=== PATIENT | female | born 1955 | race Caucasian/White ===

== ENCOUNTER → 2017-08-08 | Outpatient (CLI) | payer OTHER ==
[~2017-08-08] MED LIST: Benicar40 MG; Celexa40 MG; DOXY100; METF850; RANI150EL
== END | disposition home or self-care (01) ==
LOC: LAB SHORT 11:23 → PLD 11:23
DX: D31.61 Benign neoplasm of unspecified site of right orbit (principal); L57.0 Actinic keratosis
CPT/HCPCS: 88305

== ENCOUNTER 2018-01-31 06:48 | Day surgery (SDC) | payer OTHER ==
[~2018-01-31] VITALS: Ht 165.1 cm; Wt 76.8 kg
[~2018-01-31 06:48] MED LIST changes: -RANI150EL
[2018-01-31] MEDS ORDERED: RANI150EL (07:23)
== END 2018-01-31 09:03 | disposition home or self-care (01) ==
LOC: ORSCSDS 06:48
PROVIDERS: Internal Medicine Gastroenterology
PROC: 0DBL8ZX Excision of Transverse Colon, Via Natural or Artificial Opening Endoscopic, Diagnostic (ICD-10-PCS; principal; 2018-01-31 08:00)
PROC: 0DBP8ZX Excision of Rectum, Via Natural or Artificial Opening Endoscopic, Diagnostic (ICD-10-PCS; principal; 2018-01-31 08:00)
PROC: 0D5K8ZZ Destruction of Ascending Colon, Via Natural or Artificial Opening Endoscopic (ICD-10-PCS; principal; 2018-01-31 08:00)
PROC: 0DBK8ZX Excision of Ascending Colon, Via Natural or Artificial Opening Endoscopic, Diagnostic (ICD-10-PCS; principal; 2018-01-31 08:00)
DX: Z12.11 Encounter for screening for malignant neoplasm of colon (principal); D12.2 Benign neoplasm of ascending colon; D12.3 Benign neoplasm of transverse colon; D12.5 Benign neoplasm of sigmoid colon; K55.20 Angiodysplasia of colon without hemorrhage; K62.1 Rectal polyp; K64.8 Other hemorrhoids; E11.9 Type 2 diabetes mellitus without complications; I10 Essential (primary) hypertension; E78.5 Hyperlipidemia, unspecified; F32.9 Major depressive disorder, single episode, unspecified; Z79.84 Long term (current) use of oral hypoglycemic drugs; Z79.899 Other long term (current) drug therapy
CPT/HCPCS: 82947; 88305; J0330; J1980; J2405

== ENCOUNTER → 2019-02-21 | Outpatient (CLI) | payer OTHER ==
[~2019-02-21] MED LIST changes: +RANI150EL
== END | disposition home or self-care (01) ==
LOC: LAB SHORT 19:23 → LAB EV 19:23
DX: N39.0 Urinary tract infection, site not specified (principal)
CPT/HCPCS: 87077; 87086; 87186

== ENCOUNTER → 2021-12-29 | Outpatient (CLI) | payer MEDICARE, OTHER | END | disposition home or self-care (01) | LOC: LAB 12:10 → LAB SHORT 12:10 | DX: N39.0 Urinary tract infection, site not specified (principal) | CPT/HCPCS: 87077; 87086; 87186 ==

== ENCOUNTER 2022-08-23 12:16 | Day surgery (SDC) | payer MEDICARE, OTHER ==
[~2022-08-23] VITALS: Ht 162.6 cm; Wt 71.8 kg
[2022-08-23] MEDS ORDERED: GLIP10 (13:11)
[2022-08-23] MEDS ORDERED: LOSA25 (13:11)
[2022-08-23] MEDS ORDERED: CALCIUM 1,0001 EAC1 (13:11)
[2022-08-23] MEDS ORDERED: SERT100 (13:12)
== END 2022-08-23 15:20 | disposition home or self-care (01) ==
LOC: ORSCSDS 12:16
PROVIDERS: Internal Medicine Gastroenterology
PROC: 0DJD8ZZ Inspection of Lower Intestinal Tract, Via Natural or Artificial Opening Endoscopic (ICD-10-PCS; principal; 2022-08-23 13:45)
PROC: 0DJ08ZZ Inspection of Upper Intestinal Tract, Via Natural or Artificial Opening Endoscopic (ICD-10-PCS; principal; 2022-08-23 13:45)
DX: Z12.11 Encounter for screening for malignant neoplasm of colon (principal); Z86.010 Personal history of colon polyps; K64.8 Other hemorrhoids; K21.9 Gastro-esophageal reflux disease without esophagitis; E78.5 Hyperlipidemia, unspecified; E11.9 Type 2 diabetes mellitus without complications; Z79.82 Long term (current) use of aspirin; Z79.84 Long term (current) use of oral hypoglycemic drugs; Z79.899 Other long term (current) drug therapy
CPT/HCPCS: 43235; G0105; 82947; J2704; J7120

== ENCOUNTER → 2023-08-22 | Outpatient (CLI) | payer MEDICARE, OTHER ==
[~2023-08-22] MED LIST changes: +CALCIUM 1,0001 EAC1; +GLIP10; +LOSA25; +SERT100
[2023-08-22 12:05] LABS: Source, Urine Clean Catch
[2023-08-22 13:42] LABS: Appearance, Urine Hazy (Clear); Bilirubin, Urine Neg (Neg); Blood, Urine Neg (Neg); Glucose Qualitative, Urine Neg (Neg); Ketones, Urine Neg (Neg); Leukocyte Esterase, Urine 3+ (Neg); Nitrite, Urine Neg (Neg); Protein, Urine Neg (Neg); Specific Gravity, Urine 1.005 (1.003-1.022); Urobilinogen, Urine NORM (Normal)
[2023-08-22 13:50] LABS: Color, Urine Pale Yellow (P-Yellow)
[2023-08-22 13:51] LABS: Amorphous Light (0-Heavy); Bacteria Few /hpf; Red Blood Cells, Urine 0-2 /hpf (0-2); Squamous Epithelial Cells Few /hpf (Few); Transitional Epithelial Cells Rare /hpf (0-Rare)
== END | disposition home or self-care (01) ==
LOC: LAB 12:04 → LAB SHORT 12:04
PROVIDERS: Obstetrics & Gynecology
DX: N39.0 Urinary tract infection, site not specified (principal)
CPT/HCPCS: 81001; 87077; 87086; 87186

== ENCOUNTER 2024-04-03 12:54 | Inpatient (IN) | payer OTHER ==
[~2024-04-03] VITALS: Ht 162.6 cm; Wt 68.1 kg
[2024-04-03] VITALS (14 sets, daily range): BP systolic 118–178; BP diastolic 65–115
[~2024-04-03 12:54] MED LIST changes: -GLIP10; +GLIP10 PO
[2024-04-03] MEDS ORDERED: Ondansetron 4 MG SoluTab SL ONE (13:15)
[2024-04-03] MEDS ORDERED: Nitroglycerin 0.4 MG SUBL SL PRN (13:20)
[2024-04-03] MEDS ORDERED: Ondansetron HCl 2 MG / ML 2ML Vial IV ONE (13:30)
[2024-04-03] MEDS ORDERED: FentaNYL Citrate 50 MCG/ML 2 ML Injection IV ONE (13:30)
[2024-04-03] MEDS ORDERED: NS 1,000 ML IV SCH (13:30)
[2024-04-03] MEDS ORDERED: Atorvastatin 10 MG Tab PO ONE (13:35)
[2024-04-03] MEDS ORDERED: Ticagrelor 90 MG TABLET PO ONE ×2 (13:35→15:25)
[2024-04-03] MEDS ORDERED: NS 250 ML IV ONE (13:40)
[2024-04-03] MEDS ORDERED: FentaNYL Citrate 50 MCG/ML 2 ML Injection ONE ×2 (13:40→14:06)
[2024-04-03] MEDS ORDERED: Verapamil HCL 2.5 MG/ML 2ML Injection ONE (13:40)
[2024-04-03] MEDS ORDERED: Midazolam HCl 1MG / ML 2ML Vial ONE ×2 (13:40→14:06)
[2024-04-03] MEDS ORDERED: Nitroglycerin 2 MG/20 ML BTL ONE (13:41)
[2024-04-03] MEDS ORDERED: Heparin Sodium 1000 Units/ML 10ML MDV ONE (13:41)
[2024-04-03] MEDS ORDERED: NS 2,000 ML IV ONE (13:41)
[2024-04-03 13:54] LABS: BASOPHILS ABSOLUTE AUTO 0.05 K/mm3 (0.00-0.23); BASOPHILS PERCENT AUTO 1 % (0-2); EOSINOPHILS ABSOLUTE AUTO 0.28 K/mm3 (0.00-0.68); EOSINOPHILS PERCENT AUTO 4 % (0-6); Hematocrit 40.4 % (33.0-51.0); Hemoglobin 13.5 g/dL (11.5-16.0); IMMATURE GRAN ABSOLUTE AUTO 0.02 K/mm3 (0.00-0.10); IMMATURE GRAN PERCENT AUTO 0 % (0-1); LYMPHOCYTES ABSOLUTE AUTO 3.24 K/mm3 (0.84-5.20); LYMPHOCYTES PERCENT AUTO 40 % (21-46); MONOCYTES ABSOLUTE AUTO 0.68 K/mm3 (0.16-1.47); MONOCYTES PERCENT AUTO 8 % (4-13); Mean Corpuscular HGB 30.1 pg (26.0-34.0); Mean Corpuscular HGB Conc 33.4 g/dL (31.5-36.5); Mean Corpuscular Volume 90 fL (80-100); Mean Platelet Volume 9.8 fL (9.1-12.4); NEUTROPHILS ABSOLUTE AUTO 3.82 K/mm3 (1.96-9.15); NEUTROPHILS PERCENT AUTO 47 % (41-73); Platelet Count 408 K/mm3 (150-400); RDW Coefficient Variation 13.2 % (11.7-14.2); RDW Standard Deviation 43.8 fL (35.1-46.3); Red Blood Cell Count 4.49 M/mm3 (3.80-5.20); White Blood Cell Count 8.09 K/mm3 (4.00-11.30)
[2024-04-03 14:00] LABS: Calcium, Ionized (POC) 1.02 mmol/L (1.10-1.46); Chloride (POC) 105 mmol/L (98-108); Creatinine (POC) 0.6 mg/dL (0.6-1.0); Glucose (ISTAT POC) 137 mg/dL (70-99); Hemoglobin (POC) 12.9 g/dL (12.0-16.0); Potassium (POC) 3.9 mmol/L (3.5-5.5); Sodium (POC) 137 mmol/L (135-148); Total CO2 (POC) 20 mmol/L (21-32)
[2024-04-03 14:08] LABS: Albumin, Blood 3.6 g/dL (3.4-5.0); Albumin/Globulin Ratio 0.9 (0.8-1.8); Bilirubin, Total 0.5 mg/dL (0.1-1.0); Bun/Creatinine Ratio 18.2 (12.0-20.0); Calcium, Blood 9.6 mg/dL (8.5-10.1); Creatinine, Blood 0.61 mg/dL (0.40-1.00); Potassium, Blood 3.9 mmol/L (3.5-5.5); Total Protein, Blood 7.6 g/dL (6.4-8.2)
[2024-04-03 14:26] LABS: International Normalized Ratio 1.02; Prothrombin Time Results 10.9 Sec (9.7-11.5)
[2024-04-03 14:28] LABS: Anti-Xa UFH, PHA Monitoring 1.45 IU/mL
[2024-04-03] MEDS ORDERED: Heparin Sodium,Porcine 5,000 UNIT/0.5 ML SDV SC ONE (15:25)
[2024-04-03] MEDS ORDERED: ClonazePAM 0.5 MG Tab PO PRN (16:15)
[2024-04-03] MEDS ORDERED: AMLO10 PO (16:24)
[2024-04-03] MEDS ORDERED: AMLO5 PO (16:25)
[2024-04-03] MEDS ORDERED: CLON.5 PO (16:26)
[2024-04-03] MEDS ORDERED: OMEP20ER PO (16:28)
[2024-04-03] MEDS ORDERED: IBUP800 PO (16:28)
[2024-04-03] MEDS ORDERED: ROPI.25 PO (16:29)
[2024-04-03] MEDS ORDERED: ROPI1 PO (16:29)
[2024-04-03] MEDS ORDERED: Insulin Human Lispro 100 Units/ML 3ML Syringe SC SCH (16:30)
[2024-04-03] MEDS ORDERED: Trospium Chloride 20 MG Tab PO SCH (16:30)
--- NOTE | 2024-04-03 16:56 | NUR ---
Assumed care of pt on arrival to ICU 3 from labor/excavator at 1500. Arrived on ICU bed with R TR site in place with wrist immobilization board. No stents placed per report from labor/excavator staff, plan for pt to be evaluated for CABG. On arrival, pt denies chest pain. HR 80s, sinus. BP stable. SpO2 90% or greater RA. A&O x 4. Answers questions, follows commmands, verbalizes needs. Pleasant and cooperative with care. Pt updating own family.
[2024-04-03] MEDS ORDERED: Labetalol HCL 5 MG/ML 4ML Injection (Single Dose) IV PRN (18:00)
[2024-04-03] MEDS ORDERED: Dose Adjust by Pharmacy XX STA (20:11)
[2024-04-03] MEDS ORDERED: Heparin Sodium,Porcine/0.5 NS 500 ML IV SCH (20:15)
[2024-04-03] MEDS ORDERED: rOPINIRole HCl 0.25 MG Tab PO SCH (21:00)
[2024-04-04] VITALS (18 sets, daily range): BP systolic 108–166; BP diastolic 58–101
[2024-04-04 04:08] LABS: BASOPHILS ABSOLUTE AUTO 0.08 K/mm3 (0.00-0.23); BASOPHILS PERCENT AUTO 1 % (0-2); EOSINOPHILS ABSOLUTE AUTO 0.28 K/mm3 (0.00-0.68); EOSINOPHILS PERCENT AUTO 3 % (0-6); Hematocrit 37.5 % (33.0-51.0); Hemoglobin 12.3 g/dL (11.5-16.0); IMMATURE GRAN ABSOLUTE AUTO 0.03 K/mm3 (0.00-0.10); IMMATURE GRAN PERCENT AUTO 0 % (0-1); LYMPHOCYTES ABSOLUTE AUTO 2.53 K/mm3 (0.84-5.20); LYMPHOCYTES PERCENT AUTO 31 % (21-46); MONOCYTES ABSOLUTE AUTO 0.79 K/mm3 (0.16-1.47); MONOCYTES PERCENT AUTO 10 % (4-13); Mean Corpuscular HGB 30.3 pg (26.0-34.0); Mean Corpuscular HGB Conc 32.8 g/dL (31.5-36.5); Mean Corpuscular Volume 92 fL (80-100); Mean Platelet Volume 9.5 fL (9.1-12.4); NEUTROPHILS ABSOLUTE AUTO 4.56 K/mm3 (1.96-9.15); NEUTROPHILS PERCENT AUTO 55 % (41-73); Platelet Count 327 K/mm3 (150-400); RDW Coefficient Variation 13.2 % (11.7-14.2); RDW Standard Deviation 44.3 fL (35.1-46.3); Red Blood Cell Count 4.06 M/mm3 (3.80-5.20); White Blood Cell Count 8.27 K/mm3 (4.00-11.30)
[2024-04-04 04:36] LABS: Alanine Aminotransfer (ALT/SGP 20 U/L (12-78); Albumin/Globulin Ratio 0.8 (0.8-1.8); Alk Phos 75 U/L (50-136); Anion Gap 12 mmol/L (3-11); Aspartate Aminotrans (AST/SGOT 41 U/L (12-37); Bilirubin, Total 0.3 mg/dL (0.1-1.0); Blood Urea Nitrogen 8 mg/dL (8-24); Bun/Creatinine Ratio 15.2 (12.0-20.0); CHOL/HDL RATIO 4.2; CO2, Blood 21 mmol/L (21-32); Calcium, Blood 8.9 mg/dL (8.5-10.1); Chloride, Blood 112 mmol/L (98-108); Cholesterol 167 mg/dL (50-200); Creatinine, Blood 0.53 mg/dL (0.40-1.00); Globulin, Blood 3.6 g/dL (2.2-4.0); Glomerular Filtration Rate 100 (60-); Glucose, Blood 146 mg/dL (70-99); HDL Cholesterol 40 mg/dL (>39); LDL/HDL RATIO 2.1; Low Density Lipoprotein Chol 82 mg/dL (0-110); Potassium, Blood 4.1 mmol/L (3.5-5.5); Sodium, Blood 141 mmol/L (136-145); Total Protein, Blood 6.6 g/dL (6.4-8.2); Triglycerides 224 mg/dL (30-160); Very Low Density Lipoprot Chol 44 mg/dL (6-32)
[2024-04-04] MEDS ORDERED: Dose Adjust by Pharmacy XX STA (05:06)
[2024-04-04] MEDS ORDERED: Pantoprazole Sodium 40 MG Tab PO SCH (06:00)
--- NOTE | 2024-04-04 06:31 | NUR ---
SHIFT SUMMERY PT IS ALERT AND ORIENTED X4. SHE HAS BEEN HEMODYNAMICALLY STABLE OVERNIGHT, SR W/BP WNL. NO COMPLAINTS OF CHEST PAIN/PRESSURE THROUGHOUT THE SHIFT. PT IS AMBULATORY TO BEDSIDE COMMODE. CATH SITE RIGHT RADIAL W/TEGADERM C/D/I. NO ACUTE CHANGES TO PLAN OF CARE OVERNIGHT.
[2024-04-04] MEDS ORDERED: Sertraline HCl 50 MG Tab PO SCH (09:00)
[2024-04-04] MEDS ORDERED: Nicotine 14 MG PATCH TOP SCH (09:00)
[2024-04-04] MEDS ORDERED: Atorvastatin 40 MG Tab PO SCH (09:00)
[2024-04-04] MEDS ORDERED: AmLODIPine Besylate 5 MG Tab PO SCH (09:00)
--- NOTE | 2024-04-04 18:42 | NUR ---
DAY SHIFT SUMMARY PT HAS HAD NO EVENTS THIS SHIFT DENYING ANY PAIN OR NAUSEA THIS SHIFT. PT'S MONITOR SHOWING SR 80'S-90'S THIS SHIFT W HR GOING UP TO THE 100'S WHEN THE PT IS UP AMBULATING. SPO2 >92% ON RM AIR. PT'S BP WNL AND STABLE. PT TOLERATING PO INTAKE WELL THIS SHIFT. PLAN FOR PT TO TRANSFER THIS EVENING, THIS RN WILL GIVE REPORT TO RECIEVING RN AT [facility].
== END 2024-04-04 19:09 | disposition short-term general hospital (02) | DRG 282 ==
LOC: ER 12:54 → ICUE 13:46
PROVIDERS: Emergency Medicine; Student in an Organized Health Care Education/Training Program; ADMIT Internal Medicine
PROC: 4A023N7 Measurement of Cardiac Sampling and Pressure, Left Heart, Percutaneous Approach (ICD-10-PCS; principal; 2024-04-03)
PROC: B2111ZZ Fluoroscopy of Multiple Coronary Arteries using Low Osmolar Contrast (ICD-10-PCS; 2024-04-03)
PROC: B2151ZZ Fluoroscopy of Left Heart using Low Osmolar Contrast (ICD-10-PCS; 2024-04-03)
PROC: 4A033BC Measurement of Arterial Pressure, Coronary, Percutaneous Approach (ICD-10-PCS; 2024-04-03)
DX: I21.19 ST elevation (STEMI) myocardial infarction involving other coronary artery of inferior wall (principal); I10 Essential (primary) hypertension; E78.5 Hyperlipidemia, unspecified; K21.9 Gastro-esophageal reflux disease without esophagitis; N32.81 Overactive bladder; F32.A Depression, unspecified; I25.10 Atherosclerotic heart disease of native coronary artery without angina pectoris; E11.9 Type 2 diabetes mellitus without complications; Z90.710 Acquired absence of both cervix and uterus; Z98.890 Other specified postprocedural states; Z88.1 Allergy status to other antibiotic agents; Z79.84 Long term (current) use of oral hypoglycemic drugs; Z79.899 Other long term (current) drug therapy; R07.89 Other chest pain
CPT/HCPCS: 36415; 71045; 76937; 80047; 80053; 80061; 82947; 83036; 83880; 84443; 84484; 85014; 85025; 85347; 85520; 85610; 85730; 93005; 93010; 93306; 93458; 93571; 99152; 99153; 99285-25; A9270; C1769; C1887; C1894; J1644; J2250; J3010; J7030; J7050; Q9967

== ENCOUNTER 2025-03-17 00:44 | Day surgery (SDC) | payer OTHER ==
[~2025-03-17 00:44] MED LIST changes: +AMLO10 PO; +AMLO5 PO; +CLON.5 PO; +IBUP800 PO; +OMEP20ER PO; +ROPI.25 PO; +ROPI1 PO
[2025-03-17] MEDS ORDERED: Sod Ferric Gluc Complx/Sucrose 125 MG in NS 100 ML IV SCH (01:00)
[2025-03-17 15:10] VITALS: BP 160/73
== END 2025-03-17 16:16 | disposition home or self-care (01) ==
LOC: ATC 00:44
DX: D50.8 Other iron deficiency anemias (principal); I10 Essential (primary) hypertension; K21.9 Gastro-esophageal reflux disease without esophagitis; J45.909 Unspecified asthma, uncomplicated; E11.42 Type 2 diabetes mellitus with diabetic polyneuropathy; E78.1 Pure hyperglyceridemia; F17.210 Nicotine dependence, cigarettes, uncomplicated; Z79.82 Long term (current) use of aspirin; Z79.02 Long term (current) use of antithrombotics/antiplatelets; Z79.84 Long term (current) use of oral hypoglycemic drugs; Z79.899 Other long term (current) drug therapy; Z88.1 Allergy status to other antibiotic agents
CPT/HCPCS: 96365; J2916

== ENCOUNTER 2025-03-30 01:43 | Day surgery (SDC) | payer OTHER ==
[~2025-03-30 01:43] MED LIST changes: +Aspir 8181 MG PO; +CARV6.25 PO; +CLOP75 PO; +CYCL10 PO; +GLIP5 PO; +GLUCOPHAGE1000 M1 PO; +LOSA50 PO; +MELATONIN10 M9 PO; +MYRBETRIQ25 MG PO; +PANT40 PO; +ROSUVASTATIN CA10 MG PO; +RYBELSUS3 MG PO; +SERTRALINE HCL PO; +Sanctura20 MG PO
[2025-03-30] MEDS ORDERED: Sod Ferric Gluc Complx/Sucrose 125 MG in NS 100 ML IV SCH (06:00)
[2025-03-30 14:02] VITALS: BP 109/83
== END 2025-03-30 15:08 | disposition home or self-care (01) ==
LOC: ATC 01:43
DX: D50.8 Other iron deficiency anemias (principal); E11.42 Type 2 diabetes mellitus with diabetic polyneuropathy; K59.09 Other constipation; I10 Essential (primary) hypertension; K21.9 Gastro-esophageal reflux disease without esophagitis; F32.9 Major depressive disorder, single episode, unspecified; E78.1 Pure hyperglyceridemia; I25.2 Old myocardial infarction; F41.1 Generalized anxiety disorder; J45.909 Unspecified asthma, uncomplicated; G25.81 Restless legs syndrome; Z87.891 Personal history of nicotine dependence; Z79.82 Long term (current) use of aspirin; Z79.84 Long term (current) use of oral hypoglycemic drugs; Z79.02 Long term (current) use of antithrombotics/antiplatelets; Z79.899 Other long term (current) drug therapy; Z88.1 Allergy status to other antibiotic agents
CPT/HCPCS: 96365; J2916

== ENCOUNTER 2025-04-07 06:33 | Day surgery (SDC) | payer OTHER ==
[~2025-04-07] VITALS: Ht 165.1 cm; Wt 64.9 kg
[~2025-04-07 06:33] MED LIST changes: +Balanced Salt Epinephrine Irrigation Solution 500 mL IR SCH; +Ondansetron 4 MG SoluTab MM PRN; +PHENYLEPHRINE\\TROPICAMIDE\\TETRACAINE OPHTHALMIC DILATING SOLN RIGHTEYE PRN; +Povidone-Iodine 450 DROP/30 ML Solution ONE; +Povidone-Iodine 450 DROP/30 ML Solution RIGHTEYE SCH; +Tetracaine HCl/Pf 0.5% Opth Soln 4 ml ONE
--- NOTE | 2025-04-07 07:08 | NUR ---
04/07/25 0708 Amarilis Sandy PT STATES THAT SHE DOES NOT HAVE ANY ANXIETY ABOUT TODAYS PROCEDURE. VALIUM 10MG GIVEN AT 0656. PULSE OXIMETRY IN PLACE SHOWING SPO2 OF 95% ON RA. TETRACAINE IN AT 0700 PLEDGETT IN AT 0701 PT TOLERATED WELL SIDE RAILS UP, CALL LIGHT IN REACH
[2025-04-07] MEDS ORDERED: Moxifloxacin HCL 0.5 MG/0.1 ML 0.4MLSYR XX ONE (07:54)
--- NOTE | 2025-04-07 07:55 | NUR ---
04/07/25 0755 Rowena Santana HR:60 BP:108/58 RR:14 SPO2:100% ON 10L BLOW BY O2
[2025-04-07 08:06] VITALS: BP 113/66
--- NOTE | 2025-04-07 08:17 | NUR ---
04/07/25 0817 LAURA DEL TORO PT TO ARRIVE SHORTLY. PT DOING WELL. NO ISSUES
== END 2025-04-07 08:17 | disposition home or self-care (01) ==
LOC: ORSCSDS 06:33
PROVIDERS: Student in an Organized Health Care Education/Training Program
PROC: 08RJ3JZ Replacement of Right Lens with Synthetic Substitute, Percutaneous Approach (ICD-10-PCS; principal; 2025-04-07 08:00)
DX: E11.36 Type 2 diabetes mellitus with diabetic cataract (principal); H25.813 Combined forms of age-related cataract, bilateral; I10 Essential (primary) hypertension; I25.2 Old myocardial infarction; Z79.82 Long term (current) use of aspirin; Z79.84 Long term (current) use of oral hypoglycemic drugs; Z79.899 Other long term (current) drug therapy; Z87.891 Personal history of nicotine dependence
CPT/HCPCS: A9270; J2003; V2632

== ENCOUNTER 2025-04-13 00:39 | Day surgery (SDC) | payer OTHER ==
[~2025-04-13 00:39] MED LIST changes: -Balanced Salt Epinephrine Irrigation Solution 500 mL IR SCH; -Ondansetron 4 MG SoluTab MM PRN; -PHENYLEPHRINE\\TROPICAMIDE\\TETRACAINE OPHTHALMIC DILATING SOLN RIGHTEYE PRN; -Povidone-Iodine 450 DROP/30 ML Solution ONE; -Povidone-Iodine 450 DROP/30 ML Solution RIGHTEYE SCH; -Tetracaine HCl/Pf 0.5% Opth Soln 4 ml ONE
[2025-04-13] MEDS ORDERED: Sod Ferric Gluc Complx/Sucrose 125 MG in NS 100 ML IV SCH (06:00)
[2025-04-13 07:39] VITALS: BP 139/70
== END 2025-04-13 08:33 | disposition home or self-care (01) ==
LOC: ATC 00:39
DX: D50.8 Other iron deficiency anemias (principal); I10 Essential (primary) hypertension; I25.2 Old myocardial infarction; K21.9 Gastro-esophageal reflux disease without esophagitis; E11.42 Type 2 diabetes mellitus with diabetic polyneuropathy; J45.909 Unspecified asthma, uncomplicated; F32.9 Major depressive disorder, single episode, unspecified; F41.1 Generalized anxiety disorder; Z79.82 Long term (current) use of aspirin; Z79.899 Other long term (current) drug therapy; Z88.1 Allergy status to other antibiotic agents; Z87.891 Personal history of nicotine dependence
CPT/HCPCS: 96365; J2916

== ENCOUNTER 2025-04-21 06:56 | Day surgery (SDC) | payer OTHER ==
[~2025-04-21] VITALS: Ht 162.6 cm; Wt 64.6 kg
[~2025-04-21 06:56] MED LIST changes: +Balanced Salt Epinephrine Irrigation Solution 500 mL IR SCH; +Ondansetron 4 MG SoluTab MM PRN; +PHENYLEPHRINE\\TROPICAMIDE\\TETRACAINE OPHTHALMIC DILATING SOLN LEFTEYE PRN; +Povidone-Iodine 450 DROP/30 ML Solution LEFTEYE SCH; +Povidone-Iodine 450 DROP/30 ML Solution ONE; +Tetracaine HCl/Pf 0.5% Opth Soln 4 ml ONE
--- NOTE | 2025-04-21 07:44 | NUR ---
04/21/25 0744 Jo Golden CALL LIGHT WITHIN REACH. PT ON CONTINOUS PULSE OXIMETER. PT ANXIETY LEVEL 0/10 PRE-OP. EYE DROPS IN LEFT EYE AROUND 0738
[2025-04-21] MEDS ORDERED: Tetracaine HCl 0.5% Opth Soln 15 ml LEFTEYE ONE (08:16)
--- NOTE | 2025-04-21 08:22 | NUR ---
04/21/25 0822 Debbi Mendez N 98% ON 10L BLOW BY O2 58 20 105/58
[2025-04-21 08:35] VITALS: BP 115/63
== END 2025-04-21 08:48 | disposition home or self-care (01) ==
LOC: ORSCSDS 06:56
PROVIDERS: Student in an Organized Health Care Education/Training Program
PROC: 08RK3JZ Replacement of Left Lens with Synthetic Substitute, Percutaneous Approach (ICD-10-PCS; principal; 2025-04-21 08:30)
DX: E11.36 Type 2 diabetes mellitus with diabetic cataract (principal); H25.812 Combined forms of age-related cataract, left eye; Z96.1 Presence of intraocular lens; I10 Essential (primary) hypertension; I25.2 Old myocardial infarction; Z79.82 Long term (current) use of aspirin; Z79.02 Long term (current) use of antithrombotics/antiplatelets; Z79.84 Long term (current) use of oral hypoglycemic drugs; Z79.899 Other long term (current) drug therapy; Z87.891 Personal history of nicotine dependence
CPT/HCPCS: A9270; J2003; V2632

== ENCOUNTER 2025-07-13 09:42 | Day surgery (SDC) | payer OTHER ==
[~2025-07-13] VITALS: Ht 165.1 cm; Wt 66.1 kg
[~2025-07-13 09:42] MED LIST changes: -Balanced Salt Epinephrine Irrigation Solution 500 mL IR SCH; -Ondansetron 4 MG SoluTab MM PRN; -PHENYLEPHRINE\\TROPICAMIDE\\TETRACAINE OPHTHALMIC DILATING SOLN LEFTEYE PRN; -Povidone-Iodine 450 DROP/30 ML Solution LEFTEYE SCH; -Povidone-Iodine 450 DROP/30 ML Solution ONE; -Tetracaine HCl/Pf 0.5% Opth Soln 4 ml ONE
[2025-07-13] MEDS ORDERED: NS 500 ML IV ONE ×3 (09:59→10:05)
[2025-07-13] MEDS ORDERED: CeFAZolin Sodium 2,000 MG VIAL ONE (09:59)
[2025-07-13] MEDS ORDERED: ARICEPT23 MG PO (10:10)
[2025-07-13] MEDS ORDERED: HYDCHL25 PO (10:10)
[2025-07-13] MEDS ORDERED: ZOLOFT10013 PO (10:11)
[2025-07-13] MEDS ORDERED: KLONOPIN0.5 M9 PO (10:11)
[2025-07-13] MEDS ORDERED: GABA100 PO (10:11)
[2025-07-13 11:46] VITALS: BP 103/62
--- NOTE | 2025-07-13 11:48 | NUR ---
07/13/25 1148 Sree Kearney PT INSTRUCTED TO MONITOR B/P AT HOME AND FOLLOW UP WITH PCP NEEDED. SHE DENIED CP, DIZZINESS, SOB, WEAKNESS, VISUAL DISTURBANCE, NAUSEA, HEADACHE, AND OTHER SYMPTOMS.
== END 2025-07-13 11:35 | disposition home or self-care (01) ==
LOC: ORSCSDS 09:42
PROVIDERS: Orthopaedic Surgery
PROC: 0LN80ZZ Release Left Hand Tendon, Open Approach (ICD-10-PCS; principal; 2025-07-13 11:30)
DX: M65.312 Trigger thumb, left thumb (principal); M65.352 Trigger finger, left little finger; E11.9 Type 2 diabetes mellitus without complications; I10 Essential (primary) hypertension; I25.2 Old myocardial infarction; F32.A Depression, unspecified; F41.9 Anxiety disorder, unspecified; Z79.82 Long term (current) use of aspirin; Z79.02 Long term (current) use of antithrombotics/antiplatelets; Z79.84 Long term (current) use of oral hypoglycemic drugs; Z79.899 Other long term (current) drug therapy; Z87.891 Personal history of nicotine dependence
CPT/HCPCS: 82947; J0690; J2704; J7040